=== PATIENT | female | born 1965 | race African-American/Black ===

== ENCOUNTER 2020-07-31 10:50 | Inpatient (IN) | payer OTHER ==
--- NOTE | 2020-07-31 11:31 | BHS.RME ---
2019 N Coronavirus Screen - COVID-19 Screening Questions Dx of COVID-19 or had a positive test in the last 4 weeks?: No Contact with known/suspected COVID patient in last 14 days?: No Any of these symptoms or contact with someone who has?: None Traveled domestically/internationally in the last 14 days?: No Screen score: 0 Screen result: Further Evaluation Substance Use & Tx History - Substance Use History Alcohol Substance amount: 3 pints vodka Benzodiazepines Substance amount: klonopin o.5 mg 2 tab Frequency of use: Daily Substance route: Oral Date of Last Use: 07/31/20 (started age 51) Nicotine Substance amount: 2 ciggs Frequency of use: Daily Substance route: Smoking Date of Last Use: 07/31/20 Cocaine- Powder Substance amount: $20 Frequency of use: Less than 3 times per week Substance route: Inhalation (ex: sniffing or snorting) Date of Last Use: 07/26/20 (started age 20) - Last Treatment Date of last treatment: 2018 Treatment type: Substance Use Disorder (FRANDY) Where was last treatment: Rehab Physical/Psych/Mental Status - Behavior General Behavior: Increased activity (restlessness, agitation) Eye Contact: Normal - Cooperativeness Cooperativeness: Cooperative - Thinking Thought Processes: Tight, Logical, Goal Directed - Physical Health Problems Is patient presently having any pain?: No Does patient presently have any injuries (include location): No Does patient currently have a fever: No Is patient : No CIWA Nausea/Vomitin Muscle Tremors: 4-Moderate,w/Arms Extend Anxiety: 3 Agitation: 3 Paroxysmal Sweats: 4-Forehead w/Sweat Beads Orientation: 0-Oriented Tacttile Disturbances: 0-None Auditory Disturbances: 0-None Visual Disturbances: 0-None Headache: 0-None Present CIWA-Ar Total Score: 17
--- NOTE | 2020-07-31 12:51 | HP ---
"CIWA Score Nausea/Vomitin Muscle Tremors: 4-Moderate,w/Arms Extend Anxiety: 3 Agitation: 3 Paroxysmal Sweats: 4-Forehead w/Sweat Beads Orientation: 0-Oriented Tacttile Disturbances: 0-None Auditory Disturbances: 0-None Visual Disturbances: 0-None Headache: 0-None Present CIWA-Ar Total Score: 17 - Admission Criteria OASAS Guidelines: Admission for Medically Managed Detox: Requires at least one of the followin. CIWA greater than 12 2. Seizures within the past 24 hours 3. Delirium tremens within the past 24 hours 4. Hallucinations within the past 24 hours 5. Acute intervention needed for co occurring medical disorder 6. Acute intervention needed for co occurring psychiatric disorder 7. Severe withdrawal that cannot be handled at a lower level of care (continued vomiting, continued diarrhea, abnormal vital signs) requiring intravenous medication and/or fluids 8. Admitting History and Physical - Admission Chief Complaint: Ms. Hannah is a 55 yo woman who presents to [facility] requesting admission to detox for alcohol use disorder. History of Present Illness: Ms. Hannah is a 55 yo woman who presents to [facility] requesting admission to detox for alcohol use disorder. She is on a methadone maintenance program. She states she was sober for 1.5 years and relapsed in January 2020. 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 Benzodiazepines Substance amount: klonopin o.5 mg 2 tab Frequency of use: Daily Substance route: Oral Date of Last Use: 07/31/20 (started age 51) Seizure 1.5 weeks ago Pt states Klonopin is prescribed Nicotine Substance amount: 2 ciggs Frequency of use: Daily Substance route: Smoking Date of Last Use: 07/31/20 Cocaine- Powder Substance amount: $20 Frequency of use: Less than 3 times per week Substance route: Inhalation (ex: sniffing or snorting) Date of Last Use: 07/26/20 (started age 20) Hydrocodone: pt states she took her daughters rx 5 days ago for right ankle pain - Last Treatment Date of last treatment: 2018 Treatment type: Substance Use Disorder (FRANDY) Where was last treatment: Rehab [facility], 1965 Search Date: 07/31/2020 12:57:26 PM The Drug Utilization Report below displays all of the controlled substance prescriptions, if any, that your patient has filled in the last twelve months. The information displayed on this report is compiled from pharmacy submissions to the Department, and accurately reflects the information as submitted by the pharmacies. This report was requested by: Estella Pagan | Reference #: [id number] Others' Prescriptions Patient Name: Jocelyne Hannah Date: 1965 Address: [facility] [place] [address] Sex: Female Rx Written Rx Dispensed Drug Quantity Days Supply Prescriber Name 07/15/2020 07/23/2020 clonazepam 1 mg tablet 60 30 Aida Power Payment Method Insurance * [facility] [place] [facility] 06/24/2020 06/26/2020 clonazepam 1 mg tablet 60 30 Aida [employer] Payment Method Insurance * [facility] 04/16/2020 04/17/2020 clonazepam 2 mg tablet 60 30 Edinson Aj (Dnp) Payment Method Insurance * [facility] [place] [facility] 03/19/2020 03/20/2020 clonazepam 2 mg tablet 60 30 Edinson Aj (Dona) Payment Method Insurance * [facility] [place] [facility] 02/18/2020 02/20/2020 clonazepam 2 mg tablet 60 30 [employer] Payment Method Insurance * [facility] [place] [facility] 01/16/2020 01/17/2020 clonazepam 2 mg tablet 60 30 Aida [employer] Payment Method Insurance * [facility] [place] [facility] Date: 1965 Address: [address] [place], [place] [address] [address] Sex: Female Rx Written Rx Dispensed Drug Quantity Days Supply Prescriber Name 12/20/2019 12/20/2019 clonazepam 2 mg tablet 60 30 Bel Guerrier Payment Method Insurance * Disp[facility] 12/20/2019 12/20/2019 clonazepam 2 mg tablet 60 30 Bel Guerrier Payment Method Insurance * Disp[facility] 11/22/2019 11/22/2019 clonazepam 2 mg tablet 60 30 Aida Power Payment Method Insurance * Dispenser [facility] 10/22/2019 10/22/2019 clonazepam 2 mg tablet 60 30 Hunter Gilbert History Source: Patient Limitations to Obtaining History: No Limitations Admission ROS [facility] - [facility] Allergies/Adverse Reactions: Allergies Allergy/AdvReac Type Severity Reaction Status Date / Time lactose Allergy Verified 07/31/20 12:24 No Known Drug Allergies Allergy Verified 07/31/20 12:36 Exam Limitations: No Limitations - Ebola screening Have you traveled outside of the country in the last 21 days: No Have you been sick,other than usual withdrawal symptoms: No Do you have a fever: No - Review of Systems Constitutional: No Symptoms Reported EENT: reports: Blurred Vision (does not own glasses) Respiratory: reports: Shortness of Breath (hx of asthma) Cardiac: reports: No Symptoms Reported, Other (varicose veins in legs) GI: reports: Vomiting (few days ago) : reports: No Symptoms Reported Musculoskeletal: reports: Joint Pain (right lateral malleolus ankle, struck by door 10 days ago) Integumentary: reports: Dryness Neuro: reports: No Symptoms reported Endocrine: reports: Other (home glucose monitoring twice daily, 260s reported) Hematology: reports: No Symptoms Reported Psychiatric: reports: Anxious Patient History - Smoking Cessation Smoking history: Current every day smoker Have you smoked in the past 12 months: Yes Aproximately how many cigarettes per day: 2 Hx Chewing Tobacco Use: No Initiated information on smoking cessation: Yes 'Breaking Loose' booklet given: 07/31/20 Admission Physical Exam [facility] - Vital Signs Vital Signs: ALFONSO 0.114 VS: 91/64, 93, 12, 96.5 UDS: DAVID, MTD - Physical General Appearance: Yes: No Apparent Distress, Nourished, Appropriately Dressed, Anxious HEENTM: Yes: EOMI, Hearing grossly Normal, Normocephalic, Normal Voice Respiratory: Yes: Lungs Clear, Normal Breath Sounds, No Respiratory Distress, No Accessory Muscle Use Neck: Yes: Within Normal Limits, Supple Breast: Yes: Breast Exam Deferred Cardiology: Yes: Regular Rhythm, Regular Rate Abdominal: Yes: Soft, Protuberent, Tenderness (mild right upper quadrant) Genitourinary: Yes: Other (deferred) Back: Yes: Normal Inspection Musculoskeletal: Yes: Gait Steady, Other (cane use since ankle struck by door about 10 days ago) Extremities: Yes: Normal Inspection, Other (varicose veins in legs, dry skin, excoriated) Neurological: Yes: Alert, Normal Response Integumentary: Yes: Normal Color, Dry, Warm - Diagnostic (1) Alcohol abuse with withdrawal, uncomplicated Current Visit: Yes Status: Acute (2) Cocaine dependence Current Visit: Yes Status: Acute Qualifiers: Substance use status: uncomplicated Qualified Code(s): F14.20 - Cocaine dependence, uncomplicated (3) Methadone maintenance therapy patient Current Visit: Yes Status: Chronic (4) IDDM (insulin dependent diabetes mellitus) Current Visit: Yes Status: Acute (5) Asthma Current Visit: Yes Status: Acute (6) Nicotine dependence Current Visit: Yes Status: Acute Qualifiers: Nicotine product type: cigarettes Substance use status: uncomplicated Qualified Code(s): F17.210 - Nicotine dependence, cigarettes, uncomplicated Cleared for Admission S - Detox or Rehab [facility] Level of Care: Medically Managed Detox Regimen/Protocol: Bluetectorium Urine Drug Screen - Test Device Lot number: [id number] Expiration date: 01/21/22 - Control Is test valid?: Yes - Results Drug screen NEGATIVE: No Urine drug screen results: DAVID-Cocaine, MTD-Methadone Inpatient Rehab Admission - Rehab Decision to Admit Inpatient rehab admission?: No"
[2020-07-31] MEDS ORDERED: ONDANSETRON *ODT* 4 MG TABLET SL PRN (13:19)
[2020-07-31] MEDS ORDERED: ACETAMINOPHEN 325 MG TABLET (FP) PO PRN ×2 (13:19)
[2020-07-31] MEDS ORDERED: MAG HYDROX/AL HYDROX/SIMETH 30 ML UNIT-DOSE CUP PO PRN (13:19)
[2020-07-31] MEDS ORDERED: IBUPROFEN 400 MG TABLET (FP) PO PRN (13:19)
[2020-07-31] MEDS ORDERED: chlordiazePOXIDE HCL 25 MG CAPSULE PO PRN (13:19)
[2020-07-31] MEDS ORDERED: METHOCARBAMOL 500 MG TABLET PO PRN (13:19)
[2020-07-31] MEDS ORDERED: MAGNESIUM CITRATE 300 ML BOTTLE PO PRN (13:19)
[2020-07-31] MEDS ORDERED: MAGNESIUM HYDROX 2400MG/30ML ORAL SUSPENSION 30 ML CUP PO PRN (13:19)
[2020-07-31] MEDS ORDERED: BISMUTH SUBSALICYLATE 524 MG/30 ML UD PO PRN (13:19)
[2020-07-31] MEDS ORDERED: MENTHOL/PHENOL 1 EACH UD MM PRN (13:19)
[2020-07-31] MEDS ORDERED: ALBUTEROL SO4 HFA INHALER IH PRN (13:30)
[2020-07-31] MEDS: hydrOXYzine PAMOATE 25 MG CAPSULE (FP) PO SCH ×3 (15:09→22:18)
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
[2020-07-31 17:11] LABS: HEMATOCRIT 37.9 % (32.4-45.2); HEMOGLOBIN 12.8 GM/dL (10.7-15.3); MCH 31.3 pg (25.7-33.7); MCHC 33.7 g/dl (32.0-36.0); MEAN CELL VOLUME 92.9 fl (80-96); PLATELET COUNT 246 K/MM3 (134-434); RBC 4.08 M/mm3 (3.60-5.2); RDW 14.1 % (11.6-15.6); WHITE BLOOD COUNT 12.8 K/mm3 (4.0-10.0)
[2020-07-31 17:12] LABS: ALBUMIN 3.8 g/dl (3.4-5.0); BLOOD UREA NITROGEN 18.1 mg/dL (7-18); CALCIUM 9.5 mg/dL (8.5-10.1)
[2020-07-31 17:13] LABS: CREATININE 1.2 mg/dL (0.55-1.3)
[2020-07-31 17:15] LABS: BILIRUBIN,TOTAL 0.2 mg/dL (0.2-1); TOT PROT 8.6 g/dl (6.4-8.2)
[2020-07-31] MEDS: chlordiazePOXIDE HCL 25 MG CAPSULE PO SCH ×2 (17:54→22:18)
[2020-07-31] MEDS: metFORMIN HCL 500 MG TABLET (FP) PO SCH (17:54)
[2020-07-31] MEDS: THIAMINE HCL 100 MG TABLET (FP) PO SCH (22:18)
[2020-07-31] MEDS: ATORVASTATIN CA 20 MG TABLET (FP) PO SCH (22:18)
[2020-07-31] MEDS: QUEtiapine FUMARATE 100 MG TABLET (FP) PO SCH (22:18)
[2020-07-31] MEDS: LISINOPRIL 20 MG TABLET PO SCH (22:18)
[2020-07-31] MEDS: MELATONIN 5 MG TABLETS PO SCH (22:18)
[2020-07-31] MEDS: BUDESONIDE/FORMETEROL FUMARATE 160/4.5 mcg INHALER IH SCH (22:20)
[2020-07-31] MEDS: NICOTINE POLACRILEX 2 MG GUM BUC PRN (22:21)
[2020-08-01] MEDS: chlordiazePOXIDE HCL 25 MG CAPSULE PO SCH ×4 (05:39→22:13)
[2020-08-01] MEDS: hydrOXYzine PAMOATE 25 MG CAPSULE (FP) PO SCH ×5 (05:39→22:13)
[2020-08-01] MEDS ORDERED: METHADONE HCL 10 MG TABLET PO SCH (06:30)
[2020-08-01] MEDS ORDERED: METHADONE HCL 40 MG DISPERSABLE TABLET ONE (06:34)
[2020-08-01] MEDS ORDERED: METHADONE HCL 10 MG TABLET ONE (06:34)
[2020-08-01] MEDS: METHADONE 40 MG, METHADONE 30 MG PO SCH (06:36)
[2020-08-01] MEDS: metFORMIN HCL 500 MG TABLET (FP) PO SCH ×2 (08:33→16:30)
[2020-08-01] MEDS: NICOTINE POLACRILEX 2 MG GUM BUC PRN (08:34)
[2020-08-01] MEDS: NICOTINE 7 MG/24 HOURS TOPICAL PATCH TD SCH (10:30)
[2020-08-01] MEDS: BUDESONIDE/FORMETEROL FUMARATE 160/4.5 mcg INHALER IH SCH ×2 (10:30→22:14)
[2020-08-01] MEDS: PRENATAL VITAMINS W/ FOLIC ACID TABLET (FP) PO SCH (10:30)
--- NOTE | 2020-08-01 12:23 | PN ---
S CIWA - CIWA Score Nausea/Vomitin-No Nausea/No Vomiting Muscle Tremors: 3 Anxiety: 3 Agitation: 0-Normal Activity Paroxysmal Sweats: 3 Orientation: 0-Oriented Tacttile Disturbances: 0-None Auditory Disturbances: 0-None Visual Disturbances: 0-None Headache: 2-Mild CIWA-Ar Total Score: 11 BHS Progress Note (SOAP) Subjective: c/o sweats, chills, anxiety, headache, and shakes. Objective: 08/01/20 12:23 Vital Signs 08/01/20 08/01/20 06:33 08:53 Temperature 97.2 F L 96.9 F L Pulse Rate 78 92 H Respiratory 18 18 Rate Blood Pressure 123/74 98/68 O2 Sat by Pulse 99 95 Oximetry (%) Laboratory Last Values WBC 12.8 K/mm3 (4.0-10.0) H 07/31/20 14:05 RBC 4.08 M/mm3 (3.60-5.2) 07/31/20 14:05 Hgb 12.8 GM/dL (10.7-15.3) 07/31/20 14:05 Hct 37.9 % (32.4-45.2) 07/31/20 14:05 MCV 92.9 fl (80-96) 07/31/20 14:05 MCH 31.3 pg (25.7-33.7) 07/31/20 14:05 MCHC 33.7 g/dl (32.0-36.0) 07/31/20 14:05 RDW 14.1 % (11.6-15.6) 07/31/20 14:05 Plt Count 246 K/MM3 (134-434) 07/31/20 14:05 MPV 9.0 fl (7.5-11.1) 07/31/20 14:05 Sodium 134 mmol/L (136-145) L 07/31/20 14:05 Potassium 4.0 mmol/L (3.5-5.1) 07/31/20 14:05 Chloride 95 mmol/L (98-107) L 07/31/20 14:05 Carbon Dioxide 25 mmol/L (21-32) 07/31/20 14:05 Anion Gap 14 MMOL/L (8-16) 07/31/20 14:05 BUN 18.1 mg/dL (7-18) H 07/31/20 14:05 Creatinine 1.2 mg/dL (0.55-1.3) 07/31/20 14:05 Est GFR (CKD-EPI)AfAm 58.10 07/31/20 14:05 Est GFR (CKD-EPI)NonAf 50.13 07/31/20 14:05 POC Glucometer 191 UNITS (80-120) 08/01/20 11:05 Random Glucose 142 mg/dL (74-106) H 07/31/20 14:05 Calcium 9.5 mg/dL (8.5-10.1) 07/31/20 14:05 Total Bilirubin 0.2 mg/dL (0.2-1) 07/31/20 14:05 AST 63 U/L (15-37) H 07/31/20 14:05 ALT 45 U/L (13-61) 07/31/20 14:05 Alkaline Phosphatase 133 U/L (45-117) H 07/31/20 14:05 Total Protein 8.6 g/dl (6.4-8.2) H 07/31/20 14:05 Albumin 3.8 g/dl (3.4-5.0) 07/31/20 14:05 Syphilis Serology Non-reactive (NONREACTIVE) 07/31/20 14:05 Labs noted. Assessment: 08/01/20 12:23 AOX3, in no acute respiratory distress. Full ROM, ambulating in the unit. Withdrawal symptoms. Plan: continue detox.
--- NOTE | 2020-08-01 18:35 | EKG ---
Test Reason : Blood Pressure : / mmHG Vent. Rate : 082 BPM Atrial Rate : 082 BPM P-R Int : 150 ms QRS Dur : 092 ms QT Int : 396 ms P-R-T Axes : 060 032 048 degrees QTc Int : 462 ms NORMAL SINUS RHYTHM NORMAL ECG NO PREVIOUS ECGS AVAILABLE Confirmed by MD PARRIS, IFEOMA ([id number]) on 08/01/2020 6:35:01 PM Referred By: Confirmed By:IFEOMA NYE MD
[2020-08-01] MEDS: LISINOPRIL 20 MG TABLET PO SCH (22:13)
[2020-08-01] MEDS: MELATONIN 5 MG TABLETS PO SCH (22:13)
[2020-08-01] MEDS: ATORVASTATIN CA 20 MG TABLET (FP) PO SCH (22:13)
[2020-08-01] MEDS: QUEtiapine FUMARATE 100 MG TABLET (FP) PO SCH (22:14)
[2020-08-01] MEDS: THIAMINE HCL 100 MG TABLET (FP) PO SCH (22:14)
[2020-08-02] MEDS ORDERED: METHADONE HCL 10 MG TABLET ONE (03:21)
[2020-08-02] MEDS ORDERED: METHADONE HCL 40 MG DISPERSABLE TABLET ONE (03:21)
[2020-08-02] MEDS: hydrOXYzine PAMOATE 25 MG CAPSULE (FP) PO SCH ×4 (05:35→22:00)
[2020-08-02] MEDS: chlordiazePOXIDE HCL 25 MG CAPSULE PO SCH ×4 (05:35→22:00)
[2020-08-02] MEDS: METHADONE 40 MG, METHADONE 30 MG PO SCH (05:36)
[2020-08-02] MEDS: metFORMIN HCL 500 MG TABLET (FP) PO SCH ×2 (06:39→17:14)
[2020-08-02] MEDS: PRENATAL VITAMINS W/ FOLIC ACID TABLET (FP) PO SCH (10:03)
[2020-08-02] MEDS: NICOTINE 7 MG/24 HOURS TOPICAL PATCH TD SCH (10:03)
[2020-08-02] MEDS: BUDESONIDE/FORMETEROL FUMARATE 160/4.5 mcg INHALER IH SCH ×2 (10:03→21:58)
--- NOTE | 2020-08-02 11:21 | PN ---
S CIWA - CIWA Score Nausea/Vomitin-Mild Nausea/No Vomiting Muscle Tremors: 3 Anxiety: 2 Agitation: 3 Paroxysmal Sweats: 1-Minimal Palms Moist Orientation: 0-Oriented Tacttile Disturbances: 0-None Auditory Disturbances: 0-None Visual Disturbances: 0-None Headache: 0-None Present CIWA-Ar Total Score: 10 BHS Progress Note (SOAP) Subjective: 55 years old female was admitted on 07/31/20 for alcohol and benzo withdrawal sx management treating with librium detox regiment ms pollard states that she is taking klonopin every day for "years" (10+ years) received methadone 70 mg po toay tolerated librium well ms pollard states that the psychiatrist does not want to give her klonopin "but I take that every day" ms pollard received 60 pills klonopin 1 mg on 07/15/20 ms pollard refuses librium discontinuation refuses valium refuses ativan ms pollard prefers klonopin encourage ms pollard continue taking klonopin at home and returning to klonopin provider continue klonopin therapy Objective: 08/02/20 11:26 Vital Signs - 24 hr 08/01/20 08/01/20 08/01/20 12:40 16:40 20:20 Temperature 97.8 F 97.1 F L 97.7 F Pulse Rate 87 83 78 Respiratory 18 18 18 Rate Blood Pressure 102/68 120/73 132/77 O2 Sat by Pulse 95 98 Oximetry (%) 08/02/20 08/02/20 06:20 08:50 Temperature 97.2 F L 97.7 F Pulse Rate 80 94 H Respiratory 16 18 Rate Blood Pressure 126/77 112/73 O2 Sat by Pulse 97 97 Oximetry (%) Laboratory Tests 07/31/20 07/31/20 07/31/20 14:05 14:05 14:05 WBC 12.8 H RBC 4.08 Hgb 12.8 Hct 37.9 MCV 92.9 MCH 31.3 MCHC 33.7 RDW 14.1 Plt Count 246 MPV 9.0 Sodium 134 L Potassium 4.0 Chloride 95 L Carbon Dioxide 25 Anion Gap 14 BUN 18.1 H Creatinine 1.2 Est GFR (CKD-EPI)AfAm 58.10 Est GFR (CKD-EPI)NonAf 50.13 POC Glucometer Random Glucose 142 H Calcium 9.5 Total Bilirubin 0.2 AST 63 H ALT 45 Alkaline Phosphatase 133 H Total Protein 8.6 H Albumin 3.8 Syphilis Serology Non-reactive COVID-19 (ASIA) 07/31/20 07/31/20 07/31/20 14:10 15:00 16:41 WBC RBC Hgb Hct MCV MCH MCHC RDW Plt Count MPV Sodium Potassium Chloride Carbon Dioxide Anion Gap BUN Creatinine Est GFR (CKD-EPI)AfAm Est GFR (CKD-EPI)NonAf POC Glucometer 124 137 Random Glucose Calcium Total Bilirubin AST ALT Alkaline Phosphatase Total Protein Albumin Syphilis Serology COVID-19 (ASIA) Not detected 08/01/20 08/01/20 08/01/20 05:38 11:05 16:40 WBC RBC Hgb Hct MCV MCH MCHC RDW Plt Count MPV Sodium Potassium Chloride Carbon Dioxide Anion Gap BUN Creatinine Est GFR (CKD-EPI)AfAm Est GFR (CKD-EPI)NonAf POC Glucometer 155 191 208 Random Glucose Calcium Total Bilirubin AST ALT Alkaline Phosphatase Total Protein Albumin Syphilis Serology COVID-19 (ASIA) 08/02/20 06:38 WBC RBC Hgb Hct MCV MCH MCHC RDW Plt Count MPV Sodium Potassium Chloride Carbon Dioxide Anion Gap BUN Creatinine Est GFR (CKD-EPI)AfAm Est GFR (CKD-EPI)NonAf POC Glucometer 214 Random Glucose Calcium Total Bilirubin AST ALT Alkaline Phosphatase Total Protein Albumin Syphilis Serology COVID-19 (ASIA) 08/02/20 11:27 long history of diabetes treated with metformin 1000mg po bid Assessment: 08/02/20 11:27 alcohol and benzo withdrawal Plan: librium regiment
[2020-08-02] MEDS: THIAMINE HCL 100 MG TABLET (FP) PO SCH (21:57)
[2020-08-02] MEDS: ATORVASTATIN CA 20 MG TABLET (FP) PO SCH (21:57)
[2020-08-02] MEDS: QUEtiapine FUMARATE 100 MG TABLET (FP) PO SCH (21:57)
[2020-08-02] MEDS: MELATONIN 5 MG TABLETS PO SCH (21:57)
[2020-08-02] MEDS: LISINOPRIL 20 MG TABLET PO SCH (21:58)
[2020-08-03] MEDS ORDERED: chlordiazePOXIDE HCL 10 MG CAPSULE PO PRN
[2020-08-03] MEDS ORDERED: METHADONE HCL 10 MG TABLET ONE (05:00)
[2020-08-03] MEDS ORDERED: METHADONE HCL 40 MG DISPERSABLE TABLET ONE (05:00)
[2020-08-03] MEDS: hydrOXYzine PAMOATE 25 MG CAPSULE (FP) PO SCH ×2 (06:04→10:17)
[2020-08-03] MEDS: chlordiazePOXIDE HCL 10 MG CAPSULE PO SCH ×4 (06:04→22:08)
[2020-08-03] MEDS: METHADONE 40 MG, METHADONE 30 MG PO SCH (06:05)
[2020-08-03] MEDS: metFORMIN HCL 500 MG TABLET (FP) PO SCH ×2 (06:53→17:03)
[2020-08-03] MEDS: NICOTINE POLACRILEX 2 MG GUM BUC PRN ×3 (07:22→17:04)
[2020-08-03] MEDS: BUDESONIDE/FORMETEROL FUMARATE 160/4.5 mcg INHALER IH SCH ×2 (10:17→22:07)
[2020-08-03] MEDS: PRENATAL VITAMINS W/ FOLIC ACID TABLET (FP) PO SCH (10:18)
[2020-08-03] MEDS: NICOTINE 7 MG/24 HOURS TOPICAL PATCH TD SCH (10:20)
--- NOTE | 2020-08-03 11:42 | PN ---
S CIWA - CIWA Score Nausea/Vomitin-No Nausea/No Vomiting Muscle Tremors: 3 Anxiety: 3 Agitation: 0-Normal Activity Paroxysmal Sweats: No Perspiration Orientation: 0-Oriented Tacttile Disturbances: 0-None Auditory Disturbances: 0-None Visual Disturbances: 0-None Headache: 0-None Present CIWA-Ar Total Score: 6 BHS Progress Note (SOAP) Subjective: 55 years old male was admitted on 07/31/20 for alcohol and benzo withdrawal sx management treating with librium detox regiment ms pollard received methadone 70 mg po today feels better ate breakfast in room social with peers in day room watching TV with peers "my hands are shaking" requests higher dose of vistaril for anxiety that "psychiatrist" gives me only 100mg of seroquel ms pollard states that she was taking 600mg every day and taking klonopin every day health teaching on interaction between methadone and vistaril as well as klonipin Objective: 08/03/20 11:42 Vital Signs - 24 hr 08/02/20 08/02/20 08/02/20 12:51 16:41 20:41 Temperature 98.1 F 97.1 F L 97.3 F L Pulse Rate 85 76 83 Respiratory 18 16 18 Rate Blood Pressure 119/72 116/70 141/81 O2 Sat by Pulse 98 96 Oximetry (%) 08/03/20 08/03/20 06:24 08:39 Temperature 97.7 F 97.1 F L Pulse Rate 79 83 Respiratory 16 18 Rate Blood Pressure 131/85 100/64 O2 Sat by Pulse 98 Oximetry (%) Laboratory Tests 07/31/20 07/31/20 07/31/20 14:05 14:05 14:05 WBC 12.8 H RBC 4.08 Hgb 12.8 Hct 37.9 MCV 92.9 MCH 31.3 MCHC 33.7 RDW 14.1 Plt Count 246 MPV 9.0 Sodium 134 L Potassium 4.0 Chloride 95 L Carbon Dioxide 25 Anion Gap 14 BUN 18.1 H Creatinine 1.2 Est GFR (CKD-EPI)AfAm 58.10 Est GFR (CKD-EPI)NonAf 50.13 POC Glucometer Random Glucose 142 H Calcium 9.5 Total Bilirubin 0.2 AST 63 H ALT 45 Alkaline Phosphatase 133 H Total Protein 8.6 H Albumin 3.8 Syphilis Serology Non-reactive COVID-19 (ASIA) 07/31/20 07/31/20 07/31/20 14:10 15:00 16:41 WBC RBC Hgb Hct MCV MCH MCHC RDW Plt Count MPV Sodium Potassium Chloride Carbon Dioxide Anion Gap BUN Creatinine Est GFR (CKD-EPI)AfAm Est GFR (CKD-EPI)NonAf POC Glucometer 124 137 Random Glucose Calcium Total Bilirubin AST ALT Alkaline Phosphatase Total Protein Albumin Syphilis Serology COVID-19 (ASIA) Not detected 08/01/20 08/01/20 08/01/20 05:38 11:05 16:40 WBC RBC Hgb Hct MCV MCH MCHC RDW Plt Count MPV Sodium Potassium Chloride Carbon Dioxide Anion Gap BUN Creatinine Est GFR (CKD-EPI)AfAm Est GFR (CKD-EPI)NonAf POC Glucometer 155 191 208 Random Glucose Calcium Total Bilirubin AST ALT Alkaline Phosphatase Total Protein Albumin Syphilis Serology COVID-19 (ASIA) 08/02/20 08/02/20 08/02/20 06:38 16:35 21:27 WBC RBC Hgb Hct MCV MCH MCHC RDW Plt Count MPV Sodium Potassium Chloride Carbon Dioxide Anion Gap BUN Creatinine Est GFR (CKD-EPI)AfAm Est GFR (CKD-EPI)NonAf POC Glucometer 214 239 155 Random Glucose Calcium Total Bilirubin AST ALT Alkaline Phosphatase Total Protein Albumin Syphilis Serology COVID-19 (ASIA) 08/03/20 06:03 WBC RBC Hgb Hct MCV MCH MCHC RDW Plt Count MPV Sodium Potassium Chloride Carbon Dioxide Anion Gap BUN Creatinine Est GFR (CKD-EPI)AfAm Est GFR (CKD-EPI)NonAf POC Glucometer 224 Random Glucose Calcium Total Bilirubin AST ALT Alkaline Phosphatase Total Protein Albumin Syphilis Serology COVID-19 (ASIA) 08/03/20 11:44 long history of diabetes treated with metformin continue bgm with insulin coverage encourage weight loss Assessment: 08/03/20 11:45 alcohol and benzo withdrawal Plan: librium regiment
[2020-08-03] MEDS: hydrOXYzine PAMOATE 50 MG CAPSULE (FP) PO SCH ×4 (12:01→22:47)
[2020-08-03] MEDS: INSULIN SLIDING SCALE (NOVOLOG) 1 VIAL SQ SCH ×2 (17:08→22:06)
[2020-08-03] MEDS: THIAMINE HCL 100 MG TABLET (FP) PO SCH (22:07)
[2020-08-03] MEDS: QUEtiapine FUMARATE 100 MG TABLET (FP) PO SCH (22:08)
[2020-08-03] MEDS: MELATONIN 5 MG TABLETS PO SCH (22:08)
[2020-08-03] MEDS: LISINOPRIL 20 MG TABLET PO SCH (22:08)
[2020-08-03] MEDS: ATORVASTATIN CA 20 MG TABLET (FP) PO SCH (22:08)
[2020-08-04] MEDS: hydrOXYzine PAMOATE 50 MG CAPSULE (FP) PO SCH ×6 (03:33→23:07)
[2020-08-04] MEDS ORDERED: METHADONE HCL 10 MG TABLET ONE (04:12)
[2020-08-04] MEDS ORDERED: METHADONE HCL 40 MG DISPERSABLE TABLET ONE (04:13)
[2020-08-04] MEDS: chlordiazePOXIDE HCL 10 MG CAPSULE PO SCH ×2 (05:25→17:32)
[2020-08-04] MEDS: METHADONE 40 MG, METHADONE 30 MG PO SCH (05:25)
[2020-08-04] MEDS: NICOTINE POLACRILEX 2 MG GUM BUC PRN (05:27)
[2020-08-04] MEDS: metFORMIN HCL 500 MG TABLET (FP) PO SCH ×2 (05:59→16:50)
[2020-08-04] MEDS: INSULIN SLIDING SCALE (NOVOLOG) 1 VIAL SQ SCH ×2 (06:00→17:32)
[2020-08-04] MEDS: NICOTINE 7 MG/24 HOURS TOPICAL PATCH TD SCH (09:45)
[2020-08-04] MEDS: PRENATAL VITAMINS W/ FOLIC ACID TABLET (FP) PO SCH (09:45)
[2020-08-04] MEDS: BUDESONIDE/FORMETEROL FUMARATE 160/4.5 mcg INHALER IH SCH ×2 (09:45→22:03)
--- NOTE | 2020-08-04 10:57 | PN ---
S CIWA - CIWA Score Nausea/Vomitin-No Nausea/No Vomiting Muscle Tremors: 1-None Visible, but [place] Anxiety: 1-Mildly Anxious Agitation: 0-Normal Activity Paroxysmal Sweats: No Perspiration Orientation: 0-Oriented Tacttile Disturbances: 0-None Auditory Disturbances: 0-None Visual Disturbances: 1-Very Mild Sensitivity Headache: 1-Very Mild CIWA-Ar Total Score: 4 BHS Progress Note (SOAP) Subjective: 55 years old female was admitted on 07/31/20 for alcohol and benzo withdrawal sx management treating with librium detox regiment ambulating with cane slow leeanne feels better today ms pollard states that she does not want to return to her klonopin provider "not good for me" discussing aftercare with staff ms martinez prefers to return to methadone program for alcohol and benzo abuse treatment Objective: 08/04/20 10:59 Vital Signs - 24 hr 08/03/20 08/03/20 08/03/20 12:40 16:37 20:38 Temperature 97.1 F L 97.1 F L 97.1 F L Pulse Rate 81 72 73 Respiratory 18 18 19 Rate Blood Pressure 137/84 105/67 101/57 L O2 Sat by Pulse 96 Oximetry (%) 08/04/20 08/04/20 06:13 08:30 Temperature 97.3 F L 98.1 F Pulse Rate 71 71 Respiratory 18 18 Rate Blood Pressure 113/75 107/77 O2 Sat by Pulse 97 Oximetry (%) Laboratory Tests 07/31/20 07/31/20 07/31/20 14:05 14:05 14:05 WBC 12.8 H RBC 4.08 Hgb 12.8 Hct 37.9 MCV 92.9 MCH 31.3 MCHC 33.7 RDW 14.1 Plt Count 246 MPV 9.0 Sodium 134 L Potassium 4.0 Chloride 95 L Carbon Dioxide 25 Anion Gap 14 BUN 18.1 H Creatinine 1.2 Est GFR (CKD-EPI)AfAm 58.10 Est GFR (CKD-EPI)NonAf 50.13 POC Glucometer Random Glucose 142 H Calcium 9.5 Total Bilirubin 0.2 AST 63 H ALT 45 Alkaline Phosphatase 133 H Total Protein 8.6 H Albumin 3.8 Syphilis Serology Non-reactive COVID-19 (ASIA) 07/31/20 07/31/20 07/31/20 14:10 15:00 16:41 WBC RBC Hgb Hct MCV MCH MCHC RDW Plt Count MPV Sodium Potassium Chloride Carbon Dioxide Anion Gap BUN Creatinine Est GFR (CKD-EPI)AfAm Est GFR (CKD-EPI)NonAf POC Glucometer 124 137 Random Glucose Calcium Total Bilirubin AST ALT Alkaline Phosphatase Total Protein Albumin Syphilis Serology COVID-19 (ASIA) Not detected 08/01/20 08/01/20 08/01/20 05:38 11:05 16:40 WBC RBC Hgb Hct MCV MCH MCHC RDW Plt Count MPV Sodium Potassium Chloride Carbon Dioxide Anion Gap BUN Creatinine Est GFR (CKD-EPI)AfAm Est GFR (CKD-EPI)NonAf POC Glucometer 155 191 208 Random Glucose Calcium Total Bilirubin AST ALT Alkaline Phosphatase Total Protein Albumin Syphilis Serology COVID-19 (ASIA) 08/02/20 08/02/20 08/02/20 06:38 16:35 21:27 WBC RBC Hgb Hct MCV MCH MCHC RDW Plt Count MPV Sodium Potassium Chloride Carbon Dioxide Anion Gap BUN Creatinine Est GFR (CKD-EPI)AfAm Est GFR (CKD-EPI)NonAf POC Glucometer 214 239 155 Random Glucose Calcium Total Bilirubin AST ALT Alkaline Phosphatase Total Protein Albumin Syphilis Serology COVID-19 (ASIA) 08/03/20 08/03/20 08/03/20 06:03 16:23 21:19 WBC RBC Hgb Hct MCV MCH MCHC RDW Plt Count MPV Sodium Potassium Chloride Carbon Dioxide Anion Gap BUN Creatinine Est GFR (CKD-EPI)AfAm Est GFR (CKD-EPI)NonAf POC Glucometer 224 228 189 Random Glucose Calcium Total Bilirubin AST ALT Alkaline Phosphatase Total Protein Albumin Syphilis Serology COVID-19 (ASIA) 08/04/20 05:23 WBC RBC Hgb Hct MCV MCH MCHC RDW Plt Count MPV Sodium Potassium Chloride Carbon Dioxide Anion Gap BUN Creatinine Est GFR (CKD-EPI)AfAm Est GFR (CKD-EPI)NonAf POC Glucometer 256 Random Glucose Calcium Total Bilirubin AST ALT Alkaline Phosphatase Total Protein Albumin Syphilis Serology COVID-19 (ASIA) lab noted Assessment: 08/04/20 10:59 alcohol and benzo withdrawal Plan: librium regiment
[2020-08-04] MEDS: THIAMINE HCL 100 MG TABLET (FP) PO SCH (22:03)
[2020-08-04] MEDS: MELATONIN 5 MG TABLETS PO SCH (22:04)
[2020-08-04] MEDS: ATORVASTATIN CA 20 MG TABLET (FP) PO SCH (22:04)
[2020-08-04] MEDS: QUEtiapine FUMARATE 100 MG TABLET (FP) PO SCH (22:04)
[2020-08-04] MEDS: LISINOPRIL 20 MG TABLET PO SCH (22:04)
[2020-08-05] MEDS: hydrOXYzine PAMOATE 50 MG CAPSULE (FP) PO SCH ×2 (02:59→07:21)
[2020-08-05] MEDS ORDERED: METHADONE HCL 10 MG TABLET ONE (04:34)
[2020-08-05] MEDS ORDERED: METHADONE HCL 40 MG DISPERSABLE TABLET ONE (04:34)
[2020-08-05] MEDS ORDERED: chlordiazePOXIDE HCL 10 MG CAPSULE PO ONE (05:00)
[2020-08-05] MEDS: METHADONE 40 MG, METHADONE 30 MG PO SCH (05:50)
[2020-08-05] MEDS: NICOTINE POLACRILEX 2 MG GUM BUC PRN (06:30)
[2020-08-05 06:33] VITALS: BP 113/71; PULSE 76; TEMP 97.3
[2020-08-05] MEDS: metFORMIN HCL 500 MG TABLET (FP) PO SCH (07:23)
[2020-08-05] MEDS: INSULIN SLIDING SCALE (NOVOLOG) 1 VIAL SQ SCH (07:24)
--- NOTE | 2020-08-05 12:20 | DS ---
[facility] Detox Discharge Summary Admission Date: 07/31/20 Discharge Date: 08/05/20 - History Present History: Alcohol Dependence, Sedative Dependence, MMTP Additional Comments: 55 years old female was admitted on 07/31/20 for alcohol and benzo withdrawal sx management treated with librium detox regiment seen by psychiatrist moises marx ms pollard has completed the librium regiment and is tolerated well General Appearance: Yes: No Apparent Distress, Nourished, Appropriately Dressed, mild Anxious HEENTM: Yes: EOMI, Hearing grossly Normal, Normocephalic, Normal Voice Respiratory: Yes: Lungs Clear, Normal Breath Sounds, No Respiratory Distress, No Accessory Muscle Use Neck: Yes: Within Normal Limits, Supple Breast: Yes: Breast Exam Deferred Cardiology: Yes: Regular Rhythm, Regular Rate Abdominal: Yes: Soft, Protuberent, Tenderness (mild right upper quadrant) Genitourinary: Yes: Other (deferred) Back: Yes: Normal Inspection Musculoskeletal: Yes: Gait Steady, Other (cane use since ankle struck by door about 10 days ago) Extremities: Yes: Normal Inspection, Other (varicose veins in legs, dry skin, excoriated) Neurological: Yes: Alert, Normal Response Integumentary: Yes: Normal Color, Dry, Warm Pertinent Past History: time for discharge 35 minutes ms pollard prefers returning to [facility] provider ms pollard agrees to consider returning to [facility] for [facility] admission - Physical Exam Results Vital Signs: Vital Signs Temperature 97.3 F L 08/05/20 06:33 Pulse Rate 76 08/05/20 06:33 Respiratory Rate 20 08/05/20 06:33 Blood Pressure 113/71 08/05/20 06:33 O2 Sat by Pulse Oximetry (%) 98 08/05/20 06:33 Pertinent Admission Physical Exam Findings: alcohol and benzo withdrawal Vital Signs - 24 hr 08/04/20 08/04/20 08/04/20 14:06 16:41 20:41 Temperature 97.3 F L 97.1 F L 96.9 F L Pulse Rate 76 65 74 Respiratory 18 18 16 Rate Blood Pressure 108/82 124/58 L 109/69 O2 Sat by Pulse 97 97 Oximetry (%) 08/05/20 06:33 Temperature 97.3 F L Pulse Rate 76 Respiratory 20 Rate Blood Pressure 113/71 O2 Sat by Pulse 98 Oximetry (%) Laboratory Tests 07/31/20 07/31/20 07/31/20 14:05 14:05 14:05 WBC 12.8 H RBC 4.08 Hgb 12.8 Hct 37.9 MCV 92.9 MCH 31.3 MCHC 33.7 RDW 14.1 Plt Count 246 MPV 9.0 Sodium 134 L Potassium 4.0 Chloride 95 L Carbon Dioxide 25 Anion Gap 14 BUN 18.1 H Creatinine 1.2 Est GFR (CKD-EPI)AfAm 58.10 Est GFR (CKD-EPI)NonAf 50.13 POC Glucometer Random Glucose 142 H Calcium 9.5 Total Bilirubin 0.2 AST 63 H ALT 45 Alkaline Phosphatase 133 H Total Protein 8.6 H Albumin 3.8 Syphilis Serology Non-reactive COVID-19 (ASIA) 07/31/20 07/31/20 07/31/20 14:10 15:00 16:41 WBC RBC Hgb Hct MCV MCH MCHC RDW Plt Count MPV Sodium Potassium Chloride Carbon Dioxide Anion Gap BUN Creatinine Est GFR (CKD-EPI)AfAm Est GFR (CKD-EPI)NonAf POC Glucometer 124 137 Random Glucose Calcium Total Bilirubin AST ALT Alkaline Phosphatase Total Protein Albumin Syphilis Serology COVID-19 (ASIA) Not detected 08/01/20 08/01/20 08/01/20 05:38 11:05 16:40 WBC RBC Hgb Hct MCV MCH MCHC RDW Plt Count MPV Sodium Potassium Chloride Carbon Dioxide Anion Gap BUN Creatinine Est GFR (CKD-EPI)AfAm Est GFR (CKD-EPI)NonAf POC Glucometer 155 191 208 Random Glucose Calcium Total Bilirubin AST ALT Alkaline Phosphatase Total Protein Albumin Syphilis Serology COVID-19 (ASIA) 08/02/20 08/02/20 08/02/20 06:38 16:35 21:27 WBC RBC Hgb Hct MCV MCH MCHC RDW Plt Count MPV Sodium Potassium Chloride Carbon Dioxide Anion Gap BUN Creatinine Est GFR (CKD-EPI)AfAm Est GFR (CKD-EPI)NonAf POC Glucometer 214 239 155 Random Glucose Calcium Total Bilirubin AST ALT Alkaline Phosphatase Total Protein Albumin Syphilis Serology COVID-19 (ASIA) 08/03/20 08/03/20 08/03/20 06:03 16:23 21:19 WBC RBC Hgb Hct MCV MCH MCHC RDW Plt Count MPV Sodium Potassium Chloride Carbon Dioxide Anion Gap BUN Creatinine Est GFR (CKD-EPI)AfAm Est GFR (CKD-EPI)NonAf POC Glucometer 224 228 189 Random Glucose Calcium Total Bilirubin AST ALT Alkaline Phosphatase Total Protein Albumin Syphilis Serology COVID-19 (ASIA) 08/04/20 08/04/20 08/04/20 05:23 16:26 20:58 WBC RBC Hgb Hct MCV MCH MCHC RDW Plt Count MPV Sodium Potassium Chloride Carbon Dioxide Anion Gap BUN Creatinine Est GFR (CKD-EPI)AfAm Est GFR (CKD-EPI)NonAf POC Glucometer 256 230 206 Random Glucose Calcium Total Bilirubin AST ALT Alkaline Phosphatase Total Protein Albumin Syphilis Serology COVID-19 (ASIA) 08/05/20 05:50 WBC RBC Hgb Hct MCV MCH MCHC RDW Plt Count MPV Sodium Potassium Chloride Carbon Dioxide Anion Gap BUN Creatinine Est GFR (CKD-EPI)AfAm Est GFR (CKD-EPI)NonAf POC Glucometer 149 Random Glucose Calcium Total Bilirubin AST ALT Alkaline Phosphatase Total Protein Albumin Syphilis Serology COVID-19 (ASIA) lab noted ms pollard prefers returning to methadone maintenance program for behavioral and psychosocial therapies ms pollard wants returning to her [facility] provider - Treatment Hospital Course: Detox Protocol Followed, Detoxed Safely, Responded well, Discharged Condition Good, Rehab Referral Accepted Patient has Accepted a Rehab Referral to: methadone maintenance program - Medication Discharge Medications: Ambulatory Orders Albuterol Sulfate Inhaler - [Ventolin HFA Inhaler -] 2 inh PO Q4H PRN 07/31/20 Budesonide/Formeterol Fumarate [SYMBICORT 160/4.5mcg -] 1 inh PO BID 07/31/20 Escitalopram Oxalate [Lexapro -] 20 mg PO DAILY 07/31/20 Fenofibrate Nanocrystallized [Fenofibrate] 145 mg PO DAILY 07/31/20 Insulin Glargine,Hum.rec.anlog [Basaglar Kwikpen U-100] 12 unit SQ HS 07/31/20 Lisinopril 20 mg PO HS 07/31/20 Metformin HCl [Glucophage] 1,000 mg PO BID 07/31/20 Quetiapine Fumarate [Seroquel -] 100 mg PO HS 07/31/20 Simvastatin [Zocor -] 40 mg PO HS 07/31/20 - AMA Did Patient Leave Against Medical Advice: No CIWA Score - CIWA Score Nausea/Vomitin-No Nausea/No Vomiting Muscle Tremors: 1-None Visible, but [place] Anxiety: 1-Mildly Anxious Agitation: 0-Normal Activity Paroxysmal Sweats: No Perspiration Orientation: 0-Oriented Tacttile Disturbances: 0-None Auditory Disturbances: 0-None Visual Disturbances: 0-None Headache: 0-None Present CIWA-Ar Total Score: 2
== END 2020-08-05 09:28 | disposition home or self-care (01) | DRG 773 ==
LOC: YASAS 10:50 → Y3N 14:21
PROVIDERS: ADMIT Allergy & Immunology; ATTEND Allergy & Immunology
PROC: HZ2ZZZZ Detoxification Services for Substance Abuse Treatment (ICD-10-PCS; principal; 2020-07-31)
DX: F10.230 Alcohol dependence with withdrawal, uncomplicated (principal); F13.230 Sedative, hypnotic or anxiolytic dependence with withdrawal, uncomplicated; F11.20 Opioid dependence, uncomplicated; F14.20 Cocaine dependence, uncomplicated; F17.210 Nicotine dependence, cigarettes, uncomplicated; F19.282 Other psychoactive substance dependence with psychoactive substance-induced sleep disorder; F41.9 Anxiety disorder, unspecified; R56.9 Unspecified convulsions; J45.909 Unspecified asthma, uncomplicated; E11.9 Type 2 diabetes mellitus without complications; Z79.4 Long term (current) use of insulin; Z99.89 Dependence on other enabling machines and devices; Z56.0 Unemployment, unspecified; Z91.14 Patient's other noncompliance with medication regimen; Z91.011 Allergy to milk products
CPT/HCPCS: 36415; 71046-TC-FY; 80053; 82962; 85027; 86780; 93005; 93010; C9803; U0003

== ENCOUNTER 2020-11-09 10:24 | Inpatient (IN) | payer OTHER ==
[2020-11-09 11:28] VITALS: BMI 36.7
[2020-11-09] MEDS ORDERED: ONDANSETRON *ODT* 4 MG TABLET SL PRN (11:52)
[2020-11-09] MEDS ORDERED: MAGNESIUM HYDROX 2400MG/30ML ORAL SUSPENSION 30 ML CUP PO PRN (11:52)
[2020-11-09] MEDS ORDERED: MENTHOL/PHENOL 1 EACH UD MM PRN (11:52)
[2020-11-09] MEDS ORDERED: ACETAMINOPHEN 325 MG TABLET (FP) PO PRN ×2 (11:52)
[2020-11-09] MEDS ORDERED: IBUPROFEN 400 MG TABLET (FP) PO PRN (11:52)
[2020-11-09] MEDS ORDERED: chlordiazePOXIDE HCL 25 MG CAPSULE PO PRN (11:52)
[2020-11-09] MEDS ORDERED: MAG HYDROX/AL HYDROX/SIMETH 30 ML UNIT-DOSE CUP PO PRN (11:52)
[2020-11-09] MEDS ORDERED: MAGNESIUM CITRATE 300 ML BOTTLE PO PRN (11:52)
[2020-11-09] MEDS ORDERED: NICOTINE POLACRILEX 2 MG GUM BUC PRN (11:52)
[2020-11-09] MEDS ORDERED: ALBUTEROL SO4 HFA INHALER IH PRN (11:54)
[2020-11-09] MEDS ORDERED: chlordiazePOXIDE HCL 25 MG CAPSULE PO ONE (12:03)
[2020-11-09] MEDS: chlordiazePOXIDE HCL 25 MG CAPSULE PO SCH ×3 (13:45→22:14)
[2020-11-09] MEDS: NICOTINE 21 MG/24 HOURS TOPICAL PATCH TD SCH (13:45)
[2020-11-09] MEDS: METHOCARBAMOL 500 MG TABLET PO PRN (13:46)
[2020-11-09] MEDS: PRENATAL VITAMINS W/ FOLIC ACID TABLET (FP) PO SCH (13:46)
[2020-11-09] MEDS ORDERED: hydrOXYzine PAMOATE 25 MG CAPSULE (FP) PO SCH (14:00)
[2020-11-09 15:40] LABS: HEMATOCRIT 36.9 % (32.4-45.2); HEMOGLOBIN 12.6 GM/dL (10.7-15.3); MCH 31.2 pg (25.7-33.7); MEAN CELL VOLUME 91.8 fl (80-96); MEAN PLT VOLUME 8.9 fl (7.5-11.1); PLATELET COUNT 251 K/MM3 (134-434); POTASSIUM 5.1 mmol/L (3.5-5.1); RBC 4.02 M/mm3 (3.60-5.2); RDW 14.7 % (11.6-15.6); WHITE BLOOD COUNT 10.4 K/mm3 (4.0-10.0)
[2020-11-09 15:43] LABS: ALBUMIN 4.1 g/dl (3.4-5.0); CALCIUM 9.6 mg/dL (8.5-10.1)
[2020-11-09 15:44] LABS: BLOOD UREA NITROGEN 36.1 mg/dL (7-18)
[2020-11-09 15:47] LABS: CREATININE 1.2 mg/dL (0.55-1.3)
[2020-11-09 15:48] LABS: BILIRUBIN,TOTAL 0.5 mg/dL (0.2-1); TOT PROT 8.8 g/dl (6.4-8.2)
[2020-11-09] MEDS ORDERED: INSULIN (NOVOLOG) ASPART 100 UNITS/ML 10ML VIAL ONE (16:35)
[2020-11-09] MEDS: metFORMIN HCL 500 MG TABLET (FP) PO SCH (16:37)
[2020-11-09] MEDS: INSULIN SLIDING SCALE (NOVOLOG) 1 VIAL SQ SCH (16:41)
[2020-11-09] MEDS ORDERED: LISINOPRIL 20 MG TABLET PO SCH (22:00)
[2020-11-09] MEDS: QUEtiapine FUMARATE 100 MG TABLET (FP) PO SCH (22:14)
[2020-11-09] MEDS: THIAMINE HCL 100 MG TABLET (FP) PO SCH (22:14)
[2020-11-09] MEDS: hydrOXYzine PAMOATE 50 MG CAPSULE (FP) PO PRN (22:15)
[2020-11-09] MEDS: MELATONIN 5 MG TABLETS PO SCH (22:16)
[2020-11-09] MEDS: INSULIN (LEVEMIR) 100 UNITS/ML UNITS SQ SCH (22:17)
[2020-11-09] MEDS: BUDESONIDE/FORMETEROL FUMARATE 160/4.5 mcg INHALER IH SCH (22:19)
[2020-11-10] MEDS: metFORMIN HCL 500 MG TABLET (FP) PO SCH ×2 (06:07→17:25)
[2020-11-10] MEDS: chlordiazePOXIDE HCL 25 MG CAPSULE PO SCH ×4 (06:07→22:39)
[2020-11-10] MEDS: hydrOXYzine PAMOATE 50 MG CAPSULE (FP) PO PRN ×3 (06:23→22:37)
[2020-11-10] MEDS: BISMUTH SUBSALICYLATE 524 MG/30 ML UD PO PRN ×2 (06:38→22:45)
[2020-11-10] MEDS: INSULIN SLIDING SCALE (NOVOLOG) 1 VIAL SQ SCH ×2 (08:03→17:31)
[2020-11-10] MEDS: PRENATAL VITAMINS W/ FOLIC ACID TABLET (FP) PO SCH (10:10)
[2020-11-10] MEDS: BUDESONIDE/FORMETEROL FUMARATE 160/4.5 mcg INHALER IH SCH ×2 (10:10→22:40)
[2020-11-10] MEDS: ESCITALOPRAM OXALATE 20 MG TABLET PO SCH (10:10)
[2020-11-10] MEDS: NICOTINE 21 MG/24 HOURS TOPICAL PATCH TD SCH (10:10)
[2020-11-10] MEDS: METHOCARBAMOL 500 MG TABLET PO PRN (10:13)
[2020-11-10] MEDS ORDERED: LISINOPRIL 20 MG TABLET PO SCH (10:57)
[2020-11-10] MEDS ORDERED: METHADONE 40 MG, METHADONE 30 MG PO ONE (11:07)
[2020-11-10] MEDS ORDERED: METHADONE HCL 10 MG TABLET PO ONE (11:07)
[2020-11-10] MEDS ORDERED: METHADONE HCL 40 MG DISPERSABLE TABLET ONE (11:22)
[2020-11-10] MEDS ORDERED: METHADONE HCL 10 MG TABLET ONE (11:22)
[2020-11-10] MEDS: FENOFIBRIC ACID 135 MG CAP PO SCH (11:40)
[2020-11-10] MEDS: SIMETHICONE 80 MG TAB.CHEW (FP) PO SCH ×3 (14:41→22:37)
[2020-11-10] MEDS ORDERED: INSULIN (NOVOLOG) ASPART 100 UNITS/ML 10ML VIAL ONE (17:29)
[2020-11-10] MEDS: INSULIN (LEVEMIR) 100 UNITS/ML UNITS SQ SCH (22:37)
[2020-11-10] MEDS: LISINOPRIL 20 MG TABLET PO SCH (22:37)
[2020-11-10] MEDS: THIAMINE HCL 100 MG TABLET (FP) PO SCH (22:38)
[2020-11-10] MEDS: MELATONIN 5 MG TABLETS PO SCH (22:38)
[2020-11-10] MEDS: QUEtiapine FUMARATE 100 MG TABLET (FP) PO SCH (23:30)
[2020-11-11] MEDS ORDERED: METHADONE HCL 40 MG DISPERSABLE TABLET ONE (04:02)
[2020-11-11] MEDS ORDERED: METHADONE HCL 10 MG TABLET ONE (04:02)
[2020-11-11] MEDS: METHADONE 40 MG, METHADONE 30 MG PO SCH (05:39)
[2020-11-11] MEDS: chlordiazePOXIDE HCL 25 MG CAPSULE PO SCH ×4 (05:43→22:02)
[2020-11-11] MEDS: hydrOXYzine PAMOATE 50 MG CAPSULE (FP) PO PRN ×4 (05:44→22:05)
[2020-11-11] MEDS ORDERED: METHADONE HCL 10 MG TABLET PO SCH (06:00)
[2020-11-11] MEDS: metFORMIN HCL 500 MG TABLET (FP) PO SCH ×2 (06:51→16:50)
[2020-11-11] MEDS ORDERED: INSULIN (NOVOLOG) ASPART 100 UNITS/ML 10ML VIAL ONE ×2 (06:53→16:49)
[2020-11-11] MEDS: INSULIN SLIDING SCALE (NOVOLOG) 1 VIAL SQ SCH ×2 (06:54→16:50)
[2020-11-11] MEDS: ESCITALOPRAM OXALATE 20 MG TABLET PO SCH (10:16)
[2020-11-11] MEDS: SIMETHICONE 80 MG TAB.CHEW (FP) PO SCH (10:18)
[2020-11-11] MEDS: PRENATAL VITAMINS W/ FOLIC ACID TABLET (FP) PO SCH (10:19)
[2020-11-11] MEDS: NICOTINE 21 MG/24 HOURS TOPICAL PATCH TD SCH (10:19)
[2020-11-11] MEDS: BUDESONIDE/FORMETEROL FUMARATE 160/4.5 mcg INHALER IH SCH ×2 (11:19→22:07)
[2020-11-11] MEDS: FENOFIBRIC ACID 135 MG CAP PO SCH (11:21)
[2020-11-11] MEDS ORDERED: SIMETHICONE 80 MG TAB.CHEW (FP) PO PRN (11:28)
[2020-11-11] MEDS: FAMOTIDINE 20 MG TABLET PO SCH ×2 (11:55→22:04)
[2020-11-11] MEDS: METHOCARBAMOL 500 MG TABLET PO PRN ×2 (16:50→23:06)
[2020-11-11] MEDS: BISMUTH SUBSALICYLATE 524 MG/30 ML UD PO PRN (17:56)
[2020-11-11] MEDS: LISINOPRIL 20 MG TABLET PO SCH (22:01)
[2020-11-11] MEDS: QUEtiapine FUMARATE 100 MG TABLET (FP) PO SCH (22:01)
[2020-11-11] MEDS: MELATONIN 5 MG TABLETS PO SCH (22:03)
[2020-11-11] MEDS: THIAMINE HCL 100 MG TABLET (FP) PO SCH (22:03)
[2020-11-11] MEDS: INSULIN (LEVEMIR) 100 UNITS/ML UNITS SQ SCH (22:04)
[2020-11-12] MEDS ORDERED: chlordiazePOXIDE HCL 10 MG CAPSULE PO PRN
[2020-11-12] MEDS ORDERED: METHADONE HCL 40 MG DISPERSABLE TABLET ONE (04:16)
[2020-11-12] MEDS ORDERED: METHADONE HCL 10 MG TABLET ONE (04:16)
[2020-11-12] MEDS: hydrOXYzine PAMOATE 50 MG CAPSULE (FP) PO PRN ×2 (05:41→10:23)
[2020-11-12] MEDS: chlordiazePOXIDE HCL 10 MG CAPSULE PO SCH ×4 (05:42→22:09)
[2020-11-12] MEDS: METHADONE 40 MG, METHADONE 30 MG PO SCH (05:44)
[2020-11-12] MEDS: metFORMIN HCL 500 MG TABLET (FP) PO SCH ×2 (07:03→17:24)
[2020-11-12] MEDS: INSULIN SLIDING SCALE (NOVOLOG) 1 VIAL SQ SCH ×2 (07:03→17:25)
[2020-11-12] MEDS: ESCITALOPRAM OXALATE 20 MG TABLET PO SCH (10:21)
[2020-11-12] MEDS: PRENATAL VITAMINS W/ FOLIC ACID TABLET (FP) PO SCH (10:21)
[2020-11-12] MEDS: METHOCARBAMOL 500 MG TABLET PO PRN ×2 (10:21→17:27)
[2020-11-12] MEDS: BISMUTH SUBSALICYLATE 524 MG/30 ML UD PO PRN (10:23)
[2020-11-12] MEDS: NICOTINE 21 MG/24 HOURS TOPICAL PATCH TD SCH (10:24)
[2020-11-12] MEDS: FENOFIBRIC ACID 135 MG CAP PO SCH (10:24)
[2020-11-12] MEDS: FAMOTIDINE 20 MG TABLET PO SCH ×2 (10:26→22:10)
[2020-11-12] MEDS: BUDESONIDE/FORMETEROL FUMARATE 160/4.5 mcg INHALER IH SCH ×2 (10:27→22:10)
[2020-11-12] MEDS: QUEtiapine FUMARATE 100 MG TABLET (FP) PO SCH (22:09)
[2020-11-12] MEDS: THIAMINE HCL 100 MG TABLET (FP) PO SCH (22:10)
[2020-11-12] MEDS: ATORVASTATIN CA 20 MG TABLET (FP) PO SCH (22:10)
[2020-11-12] MEDS: LISINOPRIL 20 MG TABLET PO SCH (22:10)
[2020-11-12] MEDS: MELATONIN 5 MG TABLETS PO SCH (22:10)
[2020-11-12] MEDS: INSULIN (LEVEMIR) 100 UNITS/ML UNITS SQ SCH (22:11)
[2020-11-13] MEDS ORDERED: METHADONE HCL 40 MG DISPERSABLE TABLET ONE (04:06)
[2020-11-13] MEDS ORDERED: METHADONE HCL 10 MG TABLET ONE (04:06)
[2020-11-13] MEDS: METHADONE 40 MG, METHADONE 30 MG PO SCH (06:11)
[2020-11-13] MEDS: chlordiazePOXIDE HCL 10 MG CAPSULE PO SCH ×2 (06:11→17:35)
[2020-11-13] MEDS: metFORMIN HCL 500 MG TABLET (FP) PO SCH ×2 (06:12→17:34)
[2020-11-13] MEDS: METHOCARBAMOL 500 MG TABLET PO PRN ×2 (06:13→17:38)
[2020-11-13] MEDS: INSULIN SLIDING SCALE (NOVOLOG) 1 VIAL SQ SCH ×2 (06:14→17:37)
[2020-11-13] MEDS: ESCITALOPRAM OXALATE 20 MG TABLET PO SCH (10:14)
[2020-11-13] MEDS: PRENATAL VITAMINS W/ FOLIC ACID TABLET (FP) PO SCH (10:15)
[2020-11-13] MEDS: BUDESONIDE/FORMETEROL FUMARATE 160/4.5 mcg INHALER IH SCH ×2 (10:16→21:59)
[2020-11-13] MEDS: FENOFIBRIC ACID 135 MG CAP PO SCH (10:16)
[2020-11-13] MEDS: NICOTINE 21 MG/24 HOURS TOPICAL PATCH TD SCH (10:16)
[2020-11-13] MEDS: FAMOTIDINE 20 MG TABLET PO SCH ×2 (10:18→21:59)
[2020-11-13] MEDS: hydrOXYzine PAMOATE 50 MG CAPSULE (FP) PO PRN ×3 (10:19→22:00)
[2020-11-13] MEDS: INSULIN (LEVEMIR) 100 UNITS/ML UNITS SQ SCH (21:58)
[2020-11-13] MEDS: LISINOPRIL 20 MG TABLET PO SCH (21:59)
[2020-11-13] MEDS: MELATONIN 5 MG TABLETS PO SCH (21:59)
[2020-11-13] MEDS: ATORVASTATIN CA 20 MG TABLET (FP) PO SCH (21:59)
[2020-11-13] MEDS: QUEtiapine FUMARATE 100 MG TABLET (FP) PO SCH (21:59)
[2020-11-13] MEDS: THIAMINE HCL 100 MG TABLET (FP) PO SCH (22:00)
[2020-11-14] MEDS ORDERED: METHADONE HCL 10 MG TABLET ONE (04:57)
[2020-11-14] MEDS ORDERED: METHADONE HCL 40 MG DISPERSABLE TABLET ONE (04:58)
[2020-11-14] MEDS ORDERED: chlordiazePOXIDE HCL 10 MG CAPSULE PO ONE ×2 (05:00→06:00)
[2020-11-14] MEDS: METHADONE 40 MG, METHADONE 30 MG PO SCH (06:53)
[2020-11-14] MEDS: METHOCARBAMOL 500 MG TABLET PO PRN (06:53)
[2020-11-14] MEDS: metFORMIN HCL 500 MG TABLET (FP) PO SCH (06:55)
[2020-11-14] MEDS: INSULIN SLIDING SCALE (NOVOLOG) 1 VIAL SQ SCH (07:02)
[2020-11-14 10:32] VITALS: BP 148/86; PULSE 96; TEMP 97.7
== END 2020-11-14 09:25 | disposition home or self-care (01) | DRG 773 ==
LOC: YASAS 10:24 → Y6N 12:09
PROVIDERS: ADMIT Allergy & Immunology; ATTEND Allergy & Immunology
PROC: HZ2ZZZZ Detoxification Services for Substance Abuse Treatment (ICD-10-PCS; principal; 2020-11-09)
DX: F10.230 Alcohol dependence with withdrawal, uncomplicated (principal); F14.20 Cocaine dependence, uncomplicated; F11.20 Opioid dependence, uncomplicated; F17.210 Nicotine dependence, cigarettes, uncomplicated; F10.280 Alcohol dependence with alcohol-induced anxiety disorder; F10.282 Alcohol dependence with alcohol-induced sleep disorder; F41.9 Anxiety disorder, unspecified; F32.9 Major depressive disorder, single episode, unspecified; E78.5 Hyperlipidemia, unspecified; E11.9 Type 2 diabetes mellitus without complications; Z79.4 Long term (current) use of insulin; I10 Essential (primary) hypertension; J45.909 Unspecified asthma, uncomplicated; M54.31 Sciatica, right side; R60.0 Localized edema; R14.3 Flatulence; Z91.011 Allergy to milk products; Z99.89 Dependence on other enabling machines and devices
CPT/HCPCS: 36415; 80053; 82962; 84520; 85027; 86780; C9803; U0003